=== PATIENT | male | born 1965 | race American Indian/Alaskan Native ===

== ENCOUNTER 2017-01-12 10:52 | Emergency (ER) | payer MEDICAID, MEDICARE ==
--- NOTE | 2017-01-12 16:49 | Emergency Department Report ---
ED Lower Extremity HPI - General Chief Complaint: Extremity Injury, Lower Stated Complaint: LT KNEE/LT LEG /LT ANKLE PAIN Time Seen by Provider: 01/12/17 16:39 Source: patient Mode of arrival: Ambulatory Limitations: No Limitations - History of Present Illness Complaint: knee injury -: days(s) (6) Injury: Knee: Left Type of Injury: blunt Place: home Severity: mild Severity scale (0 -10): 3 Improves With: nothing Worsens With: movement Context: walking Other Symptoms: other (none) - Related Data Previous Rx's Medication Instructions Recorded Last Taken Type Ketorolac [Toradol] 10 mg PO Q6H PRN #14 tablet 01/12/17 Unknown Rx Allergies Allergy/AdvReac Type Severity Reaction Status Date / Time No Known Allergies Allergy Unverified 01/12/17 10:59 ED Review of Systems ROS: Stated complaint: LT KNEE/LT LEG /LT ANKLE PAIN Other details as noted in HPI Comment: All other systems reviewed and negative Constitutional: no symptoms reported Musculoskeletal: joint swelling, myalgia ED Past Medical Hx - Past Medical History Previous Medical History?: Yes Hx Hypertension: Yes Hx Psychiatric Treatment: Yes (bipolar) - Surgical History Past Surgical History?: Yes Additional Surgical History: left ankle - Social History Smoking Status: Current Every Day Smoker Substance Use Type: Prescribed - Medications Home Medications: Home Medications Medication Instructions Recorded Confirmed Last Taken Type Ketorolac [Toradol] 10 mg PO Q6H PRN #14 tablet 01/12/17 Unknown Rx ED Physical Exam - General Limitations: No Limitations General appearance: alert, in no apparent distress - Head Head exam: Present: atraumatic - Eye Eye exam: Present: normal appearance - ENT ENT exam: Present: normal exam, normal orophraynx - Neck Neck exam: Present: normal inspection, tenderness - Respiratory Respiratory exam: Present: normal lung sounds bilaterally - Cardiovascular Cardiovascular Exam: Present: regular rate, normal rhythm - GI/Abdominal GI/Abdominal exam: Present: soft - Extremities Exam Extremities exam: Present: other (left knee swelling, left calf swelling, tenderness Iglesias's cyst area) - Neurological Exam Neurological exam: Present: alert, altered, oriented X3 - Psychiatric Psychiatric exam: Present: normal affect, normal mood ED Course Vital Signs 01/12/17 01/12/17 10:59 17:27 Temperature 98 F 98 F Pulse Rate 124 H 78 Respiratory 20 18 Rate Blood Pressure 177/107 Blood Pressure 169/114 [Left] O2 Sat by Pulse 98 99 Oximetry Critical care attestation.: If time is entered above; I have spent that time in minutes in the direct care of this critically ill patient, excluding procedure time. ED Disposition Clinical Impression: Iglesias's cyst, ruptured, Posterior left knee pain Disposition: TO HOME OR SELFCARE Is pt being admited?: No Does the pt Need Aspirin: No Condition: Stable Additional Instructions: Take medicine as directed and apply ice for 15 minutes 4 hours a day. Return to ER if symptoms worsen. Follow-up with primary care doctor in 2-3 days Prescriptions: Ketorolac [Toradol] 10 mg PO Q6H PRN #14 tablet PRN Reason: Pain Referrals: PRIMARY CARE, [Primary Care Provider] - 3-5 Days
[2017-01-12 17:28] VITALS: BP 169/114
--- NOTE | 2017-01-13 07:23 | XRay Report ---
Left knee 3 views: History: Pain and swelling. Findings: The medial and patellofemoral compartment knee joint. Spur identified at the anterosuperior aspect of patella. There is sparse last ossification at the medial femoral condyle. Impression: R. knee degenerative changes medial and patellofemoral compartment knee joint. Additional findings as detailed above.
--- NOTE | 2017-01-13 11:59 | Vascular Lab Report ---
Left Lower Extremity Venous Duplex Study: Reason for Exam: Pain and swelling of the left lower extremity. Comments on the Right: A limited duplex study was done of the proximal veins of the right lower extremity. All veins visualized are freely compressible without evidence of internal echogenicity. Flow is spontaneous and phasic throughout. No evidence of acute or chronic thrombus is seen in any of the vessels visualized. Comments on the Left: All veins visualized are freely compressible without evidence of internal echogenicity. Flow is spontaneous and phasic throughout. No evidence of acute or chronic thrombus is seen in any of the vessels visualized. Soft tissue density consistent with Iglesias's cyst. Impression: No evidence of acute or chronic deep venous thrombosis in the left lower extremity.
== END 2017-01-12 19:32 | disposition home or self-care (01) ==
LOC: ED 10:52
DX: M25.562 Pain in left knee (principal); M66.0 Rupture of popliteal cyst; I10 Essential (primary) hypertension; F31.9 Bipolar disorder, unspecified; F17.200 Nicotine dependence, unspecified, uncomplicated
CPT/HCPCS: 99284

== ENCOUNTER 2020-07-03 07:49 | Emergency (ER) | payer MEDICARE ==
[2020-07-03 07:58] VITALS: BP 158/98
[2020-07-03] MEDS ORDERED: ONDANSETRON 4 MG ODT TAB PO ONE (08:29)
--- NOTE | 2020-07-03 08:34 | Emergency Department Report ---
Vomiting/Diarrhea - HPI Chief Complaint: Nausea/Vomiting/Diarrhea Stated Complaint: NAUSA Time Seen by Provider: 07/03/20 08:24 Duration: 3 Days Severity: mild Nausea/Vomiting Severity: Mild Diarrhea Severity: Mild Pain Location: Generalized Pain Severity: None Symptoms: Yes Family w/ Similar Symptoms, Yes Contacts w/ Similar Symptoms, No Watery Diarrhea, No Bloody diarrhea, No Fever, No Able to Tolerate Fluids, No Recent Unusual Foods, No Recent Untreated Water, No Recent use of Antibiotics, No Rash, No Hematuria, No Recent URI Symptoms Other History: Chief complaint: Vomiting upset stomach. HPI this is a 54-year-old male with history of hypertension and bipolar affective disorder who presents with nausea upset stomach vomiting. He has had mild symptoms for the past 3 days. Vomited once. He denies fever. Denies shortness of breath. He denies cough. He denies diarrhea. He is concerned for COVID-19 infection. His mother was admitted and discharged from this hospital. Her condition worsened. She is now on mechanical ventilation at outside hospital. Patient denies pain at this time. ED Review of Systems ROS: Stated complaint: NAUSA Other details as noted in HPI Comment: All other systems reviewed and negative Constitutional: denies: chills, fever, malaise Respiratory: denies: cough, shortness of breath Cardiovascular: denies: chest pain Gastrointestinal: nausea, vomiting, other ("Upset stomach") ED Past Medical Hx - Past Medical History Previous Medical History?: Yes Hx Hypertension: Yes Hx Psychiatric Treatment: Yes (bipolar) - Surgical History Past Surgical History?: Yes Additional Surgical History: left ankle - Social History Smoking Status: Current Every Day Smoker Substance Use Type: None - Medications Home Medications: Home Medications Medication Instructions Recorded Confirmed Last Taken Type Ketorolac [Toradol] 10 mg PO Q6H PRN #14 tablet 01/12/17 Unknown Rx Famotidine [Acid Controller] 20 mg PO BID 14 Days #28 tablet 07/03/20 Unknown Rx Promethazine [Phenergan] 25 mg PO Q6HR PRN #10 tab 07/03/20 Unknown Rx Vomiting Diarrhea Exam - Exam General: Vital signs noted. No distress. Alert and acting appropriately. HEENT: Yes Moist Mucous Membranes, No Pharyngeal Erythema, No Pharyngeal Exudates, No Rhinorrhea, No Conjuctival Injection, No Frontal Tenderness, No Maxillary Tenderness Neck: No Adenopathy, No Rigidity Lungs: Yes Clear Lung Sounds, Yes Good Air Exchange, No Wheezes, No Stridor, No Cough, No Nasal Flaring, No Retractions, No Use of Accessory Muscles Heart exam: Regular: Yes, Murmur: No, Tachycardia: No Abdomen: Tenderness: No, Peritoneal Signs: No, Distention: No, Hyperactive Bowel sounds: No Skin exam: Rash: No, Edema: No, Normal turgor: Yes Neurologic: Alert and oriented, no deficits. Musculoskeletal: Unremarkable. Exam: Well-appearing, appears comfortable ED Course Vital Signs 07/03/20 07/03/20 07:55 08:16 Temperature 98.3 F Pulse Rate 119 H 114 H Respiratory 18 16 Rate Blood Pressure 158/98 [Left] O2 Sat by Pulse 96 98 Oximetry ED Medical Decision Making - Medical Decision Making Mr. Hutchins is a 54-year-old male with history of hypertension bipolar affect disorder who presents with "upset stomach" and one episode of nausea. Considering patient's COVID-19 exposure, patient is at risk for this viral infection as well as influenza. Differential diagnosis also includes peptic ulcer disease and food poisoning. Patient was prescribed promethazine and famotidine. I recommended outpatient testing for COVID-19. Patient understands to self isolate self quarantine for the next 10 days. Critical care attestation.: If time is entered above; I have spent that time in minutes in the direct care of this critically ill patient, excluding procedure time. ED Disposition Clinical Impression: Vomiting, Dyspepsia, Exposure to COVID-19 virus Disposition: DC- TO HOME OR SELFCARE Is pt being admited?: No Does the pt Need Aspirin: No Condition: Stable Instructions: Nausea and Vomiting, Adult Prescriptions: Famotidine [Acid Controller] 20 mg PO BID 14 Days #28 tablet Promethazine [Phenergan] 25 mg PO Q6HR PRN #10 tab PRN Reason: Nausea Referrals: MITCHELL LUQUE MD [Staff Physician] - as needed
== END 2020-07-03 08:47 | disposition home or self-care (01) ==
LOC: ED 07:49
DX: R10.13 Epigastric pain (principal); R11.10 Vomiting, unspecified; Z20.828 Contact with and (suspected) exposure to other viral communicable diseases; I10 Essential (primary) hypertension; F31.9 Bipolar disorder, unspecified; F17.200 Nicotine dependence, unspecified, uncomplicated; Z98.890 Other specified postprocedural states; Z79.899 Other long term (current) drug therapy
CPT/HCPCS: 99282